=== PATIENT | female | born 1955 | race Caucasian/White ===

== ENCOUNTER 2017-08-20 07:32 | Outpatient (CLI) | payer OTHER ==
--- NOTE | 2017-08-27 16:12 | MMO ---
BILATERAL SCREENING MAMMOGRAM: Date: 08/20/17 COMPARISON: 06/29/16 and 05/10/15. HISTORY: Screening mammography. FINDINGS: This patient's mammogram was interpreted with the assistance of computer-aided detection. There is no dominant mass, architectural distortion, or concerning microcalcification. Intramammary l ymph nodes are again noted bilaterally. IMPRESSION: BIRADS 2: Benign Finding(s) Annual screening mammography recommended. POS: [facility]
== END 2017-08-20 07:33 | disposition home or self-care (01) ==
LOC: SCSMAMMO 07:32
PROVIDERS: ATTEND Family Medicine
DX: Z12.31 Encounter for screening mammogram for malignant neoplasm of breast (principal)
CPT/HCPCS: 77067

== ENCOUNTER 2018-02-02 16:59 | Outpatient (CLI) | payer OTHER ==
[2018-02-02 18:33] LABS: Thyroid Stimulating Hormone 0.6265 uIU/mL (0.35-4.94)
== END 2018-02-02 17:00 ==
LOC: SCSLAB 16:59
PROVIDERS: ATTEND Family Medicine
DX: E03.9 Hypothyroidism, unspecified (principal)
CPT/HCPCS: 36415; 84443; 84481

== ENCOUNTER 2018-02-27 15:43 | Outpatient (CLI) | payer OTHER ==
--- NOTE | 2018-02-27 16:28 | RAD ---
RIGHT FEMUR TWO VIEWS: HISTORY: A 62-year-old female with a history of a painful lump in the leg yesterday. TECHNIQUE: A radiopaque marker is placed over the area of clinical concern. FINDINGS: No right femoral fracture or dislocation. No evidence for an obvious soft tissue mass, although a fo llow-up ultrasound or MRI would be much better in assessing for that possibility. IMPRESSION: No evidence for acute femoral fracture. Given concern for soft tissue mass, follow-up right thigh ma gnetic resonance imaging with and without intravenous contrast is recommended for further assessment on a nonemergent basis. POS: [facility]
== END 2018-02-27 15:44 | disposition home or self-care (01) ==
LOC: SCSRAD 15:43
PROVIDERS: ATTEND Family Medicine
DX: R22.41 Localized swelling, mass and lump, right lower limb (principal)

== ENCOUNTER 2018-09-04 11:32 | Outpatient (CLI) | payer MEDICARE, OTHER ==
--- NOTE | 2018-09-04 13:04 | BD ---
DEXA BONE DENSITY STUDY: Date: 09/04/18 HISTORY: Postmenopausal. FINDINGS: Lumbar Spine: BMD (g/cm2) L1 0.941 T-Score: -0.4 L2 0.986 T-Score: -0.4 L3 1.113 T-Score: +0.3 L4 1.053 T-Score: -0.1 Total 1.025 T-Score: -0.2 Left Femoral Neck: 0.742 T-Score: -1.0 Total Femur: 0.937 T-Score: +0.0 IMPRESSION: Normal bone mineral density of the lumbar spine and left femoral neck. POS: [facility]
--- NOTE | 2018-09-09 18:26 | MMO ---
Bilateral MAMMO Bilat Screen [facility]. CLINICAL HISTORY: Patient is 63 years old and is seen for screening. The patient has the following family history of breast cancer: 3 maternal aunts. The patient has no personal history of cancer. VIEWS: The views performed were: bilateral craniocaudal with tomosynthesis; bilateral mediolateral oblique with tomosynthesis; and bilateral exaggerated craniocaudal. FILMS COMPARED: The present examination has been compared to prior imaging studies performed at [facility] on 05/10/2015, 06/29/2016 and 08/20/2017. MAMMOGRAM FINDINGS: The breasts are heterogeneously dense, which could obscure a lesion on mammography. There are no suspicious masses, suspicious calcifications, or new areas of architectural distortion. IMPRESSION: THERE IS NO MAMMOGRAPHIC EVIDENCE OF MALIGNANCY. A ROUTINE FOLLOW-UP MAMMOGRAM IN 1 YEAR IS RECOMMENDED. THE RESULTS OF THIS EXAM WERE SENT TO THE PATIENT. ACR BI-RADS Category 1 - Negative MAMMOGRAPHY NOTE: 1. A negative mammogram report should not delay a biopsy if a dominant of clinically suspicious mass is present. 2. Approximately 10% to 15% of breast cancers are not detected by mammography. 3. Adenosis and dense breasts may obscure an underlying neoplasm.
== END 2018-09-04 11:33 | disposition home or self-care (01) ==
LOC: BICMAMMO 11:32
PROVIDERS: ATTEND Family Medicine
DX: Z12.31 Encounter for screening mammogram for malignant neoplasm of breast (principal); Z78.0 Asymptomatic menopausal state; M85.859 Other specified disorders of bone density and structure, unspecified thigh
CPT/HCPCS: 77063; 77067; 77080

== ENCOUNTER 2020-03-16 15:32 | Outpatient (CLI) | payer MEDICARE, OTHER | END 2020-03-16 15:33 | disposition home or self-care (01) | LOC: CTENTCT 15:32 | PROVIDERS: ATTEND Otolaryngology Plastic Surgery within the Head & Neck | DX: J01.91 Acute recurrent sinusitis, unspecified (principal) | CPT/HCPCS: 70486 ==

== ENCOUNTER 2020-04-14 09:12 | Outpatient (CLI) | payer MEDICARE, OTHER ==
--- NOTE | 2020-04-14 09:58 | ULT ---
EXAM: US Breast Limited Lt PROVIDED CLINICAL HISTORY: Left breast palpable abnormality COMPARISON: Concurrently performed diagnostic mammogram FINDINGS: Limited sonographic interrogation was performed of the left breast in the region of palpable concern. The sonographic appearance of the breast tissue in this region is normal. IMPRESSION: No sonographic abnormality is evident in the region of clinical concern. Negative imaging findings sh ould not preclude further evaluation of a clinically suspicious finding. Patient is referred back to her clinician.
--- NOTE | 2020-04-14 09:59 | MMO ---
Bilateral MAMMO Bilat Diag [facility]. CLINICAL HISTORY: Patient is 64 years old and is seen for diagnostic exam. The patient has the following family history of breast cancer: 3 maternal aunts. The patient has no personal history of cancer. VIEWS: The views performed were: bilateral craniocaudal with tomosynthesis; bilateral mediolateral oblique with tomosynthesis; and bilateral mediolateral with tomosynthesis. FILMS COMPARED: The present examination has been compared to prior imaging studies performed at [facility] on 06/29/2016, 08/20/2017, 09/04/2018 and 04/14/2020. This study has been interpreted with the assistance of computer-aided detection. MAMMOGRAM FINDINGS: The breasts are heterogeneously dense, which could obscure a lesion on mammography. There are no suspicious masses, suspicious calcifications, or new areas of architectural distortion. There are no mammographic or sonographic abnormalities in the area of palpable concern. The patient is referred back to her clinician. Negative imaging findings should not preclude biopsy if clinical findings are suspicious. IMPRESSION: THERE ARE NO MAMMOGRAPHIC OR SONOGRAPHIC ABNORMALITIES IN THE AREA OF PALPABLE CONCERN. THE PATIENT IS REFERRED BACK TO HER CLINICIAN. NEGATIVE IMAGING FINDINGS SHOULD NOT PRECLUDE BIOPSY IF CLINICAL FINDINGS ARE SUSPICIOUS. THE RESULTS OF THIS EXAM WERE SENT TO THE PATIENT. ACR BI-RADS Category 1 - Negative MAMMOGRAPHY NOTE: 1. A negative mammogram report should not delay a biopsy if a dominant of clinically suspicious mass is present. 2. Approximately 10% to 15% of breast cancers are not detected by mammography. 3. Adenosis and dense breasts may obscure an underlying neoplasm. Reported by: BECKY COBURN MD Electonically Signed: [id number]
== END 2020-04-14 09:13 | disposition home or self-care (01) ==
LOC: BICMAMMO 09:12
PROVIDERS: ATTEND Family Medicine
DX: N63.21 Unspecified lump in the left breast, upper outer quadrant (principal)
CPT/HCPCS: 76642; 77066; G0279

== ENCOUNTER 2020-11-30 10:11 | Outpatient (CLI) | payer MEDICARE, OTHER | END 2020-11-30 10:12 | disposition home or self-care (01) | LOC: RAD 10:11 | PROVIDERS: ATTEND Internal Medicine Gastroenterology | DX: Z12.11 Encounter for screening for malignant neoplasm of colon (principal); Q43.8 Other specified congenital malformations of intestine; K57.30 Diverticulosis of large intestine without perforation or abscess without bleeding | CPT/HCPCS: 74270 ==

== ENCOUNTER 2021-10-04 13:33 | Outpatient (CLI) | payer MEDICARE, OTHER | END 2021-10-04 13:34 | disposition home or self-care (01) | LOC: SCSMRI 13:33 | PROVIDERS: ATTEND Internal Medicine Gastroenterology | DX: N81.4 Uterovaginal prolapse, unspecified (principal); N81.6 Rectocele; R19.4 Change in bowel habit; K62.9 Disease of anus and rectum, unspecified; N89.8 Other specified noninflammatory disorders of vagina | CPT/HCPCS: 72197; 82565 ==